=== PATIENT | male | born 1965 | race Caucasian/White ===

== ENCOUNTER 2017-05-02 03:34 | Emergency (ER) | payer BC, OTHER ==
[~2017-05-02] VITALS: Ht 172.7 cm; Wt 87.0 kg
[2017-05-02 03:38] VITALS: TEMP 36.4; Ht 172.7 cm; Wt 87.0 kg
--- NOTE | 2017-05-02 03:53 | EMERGENCY ROOM VISIT NOTE ---
History Report prepared by Sahil: Sunitha Balderas Under the Supervision of: Dr. Jim Johnson D.O. First contact with patient: 03:42 Chief Complaint: BACK PAIN Stated Complaint: PAIN RT SIDE BACK History of Present Illness The patient is a 52 year old male who presents to the Emergency Room with complaints of persistent right back pain starting 30 minutes ago. The pain woke him up from sleep. The pain does not wrap around to his abdomen. He denies injuring his back. He denies any urinary symptoms. He denies any history of kidney problems, back injury, or herniated disc. Source of History: patient Onset: 30 minutes ago Position: back (right) Quality: other (pain) Timing: other (persistent) Associated Symptoms: No abdominal pain, No urinary symptoms Review of Systems See HPI for pertinent positives and negatives. A total of ten systems were reviewed and were otherwise negative. Past Medical & Surgical Medical Problems: (1) Bronchitis (2) Pneumonia Family History FH: heart disease Social History Smoking Status: Current Every Day Smoker Marital Status: Housing Status: lives with family Occupation Status: employed Current/Historical Medications No Active Prescriptions or Reported Meds Allergies Coded Allergies: No Known Allergies (Unverified , 05/02/17) Physical Exam Vital Signs Date Time Temp Pulse Resp B/P (MAP) Pulse Ox O2 Delivery O2 Flow Rate FiO2 05/02/17 05:16 81 16 134/76 98 Room Air 05/02/17 03:38 36.4 92 18 145/92 97 Room Air Physical Exam GENERAL: Awake, alert, well-appearing, in no distress HENT: Normocephalic, atraumatic. Oropharynx unremarkable. EYES: Normal conjunctiva. Sclera non-icteric. NECK: Supple. No nuchal rigidity. FROM. No JVD. RESPIRATORY: Clear to auscultation. CARDIAC: Regular rate, normal rhythm. Extremities warm and well perfused. Pulses equal. ABDOMEN: Soft, non-distended. No tenderness to palpation. No rebound or guarding. No masses. RECTAL: Deferred. MUSCULOSKELETAL: Chest examination reveals no tenderness. The back is symmetrical on inspection without obvious abnormality. Mild right lateral lumbar tenderness. There is no CVA tenderness to palpation. No joint edema. LOWER EXTREMITIES: Calves are equal size bilaterally and non-tender. No edema. No discoloration. NEURO: Normal sensorium. No sensory or motor deficits noted. SKIN: No rash or jaundice noted. Medical Decision & Procedures ER Provider Diagnostic Interpretation: Radiology results as stated below per my review and [facility] radiologist interpretation: CT Abdomen & Pelvis Without Contrast: No hydronephrosis, ureteral calculus, or perinephric inflammatory changes to account for right flank pain. Bladder wall thickening which may be due to cystitis. Correlate with urinalysis. Large amount of gastric contents. Correlate with recent meal. Normal appendix. Few colonic diverticula without evidence of acute diverticulitis. Contracted gallbladder. No radiopaque gallstones. Laboratory Results 05/02/17 03:55 Red Blood Count 4.92, Mean Corpuscular Volume 89.4, Mean Corpuscular Hemoglobin 30.9, Mean Corpuscular Hemoglobin Concent 34.5, Mean Platelet Volume 10.2, Neutrophils (%) (Auto) 63.6, Lymphocytes (%) (Auto) 24.6, Monocytes (%) (Auto) 8.5, Eosinophils (%) (Auto) 2.4, Basophils (%) (Auto) 0.5, Neutrophils # (Auto) 5.37, Lymphocytes # (Auto) 2.07, Monocytes # (Auto) 0.72, Eosinophils # (Auto) 0.20, Basophils # (Auto) 0.04 05/02/17 03:55 Test 05/02/17 03:47 05/02/17 03:55 White Blood Count 8.43 K/uL (4.8-10.8) Red Blood Count 4.92 M/uL (4.7-6.1) Hemoglobin 15.2 g/dL (14.0-18.0) Hematocrit 44.0 % (42-52) Mean Corpuscular Volume 89.4 fL (80-100) Mean Corpuscular Hemoglobin 30.9 pg (25-34) Mean Corpuscular Hemoglobin Concent 34.5 g/dl (32-36) Platelet Count 227 K/uL (130-400) Mean Platelet Volume 10.2 fL (7.4-10.4) Neutrophils (%) (Auto) 63.6 % Lymphocytes (%) (Auto) 24.6 % Monocytes (%) (Auto) 8.5 % Eosinophils (%) (Auto) 2.4 % Basophils (%) (Auto) 0.5 % Neutrophils # (Auto) 5.37 K/uL (1.4-6.5) Lymphocytes # (Auto) 2.07 K/uL (1.2-3.4) Monocytes # (Auto) 0.72 K/uL (0.11-0.59) Eosinophils # (Auto) 0.20 K/uL (0-0.5) Basophils # (Auto) 0.04 K/uL (0-0.2) RDW Standard Deviation 44.7 fL (36.4-46.3) RDW Coefficient of Variation 13.6 % (11.5-14.5) Immature Granulocyte % (Auto) 0.4 % Immature Granulocyte # (Auto) 0.03 K/uL (0.00-0.02) Anion Gap 8.0 mmol/L (3-11) Est Creatinine Clear Calc Drug Dose 71.9 ml/min Estimated GFR () 74.5 Estimated GFR (Non- 64.2 BUN/Creatinine Ratio 17.6 (10-20) Calcium Level 8.2 mg/dl (8.5-10.1) Total Bilirubin 0.3 mg/dl (0.2-1) Direct Bilirubin < 0.1 mg/dl (0-0.2) Aspartate Amino Transf (AST/SGOT) 18 U/L (15-37) Alanine Aminotransferase (ALT/SGPT) 24 U/L (12-78) Alkaline Phosphatase 82 U/L (45-117) Total Protein 7.2 gm/dl (6.4-8.2) Albumin 3.4 gm/dl (3.4-5.0) Lipase 388 U/L (73-393) Laboratory results reviewed by in ED Course 0344: The patient was evaluated in room B9. A complete history and physical exam was performed. 0617: I reevaluated the patient. Discussed results and discharge instructions: He verbalized understanding and agreement. The patient is ready for discharge. Medical Decision Differential diagnoses include but are not limited to; muscle sprain, strain, herniated disc, kidney infection, kidney stone. Patient feels much better after medication, CAT scan was negative lab work was normal. I discussed evaluation with the patient patient's family at bedside Medication Reconcilliation Current Medication List: was personally reviewed by me Blood Pressure Screening Patient's blood pressure: Elevated blood pressure Blood pressure disposition: Elevated BP felt to be situational Impression Primary Impression: Strain of lumbar region Additional Impression: Renal colic Scribe Attestation The scribe's documentation has been prepared under my direction and personally reviewed by me in its entirety. I confirm that the note above accurately reflects all work, treatment, procedures, and medical decision making performed by me. Departure Information Dispostion Home / Self-Care Prescriptions No Active Prescriptions or Reported Meds Referrals Clarissa Adam D.O. (PCP) Patient Instructions Back Pain - [facility], [facility] Additional Instructions Use heating pad, take Motrin 800 mg every 8 hours. Return for increased pain fever or any concerns Problem Qualifiers
[2017-05-02 04:06] LABS: BASO % 0.5 %; BASO ABS # 0.04 K/uL (0-0.2); COMPLETE YES; EOS % 2.4 %; IG% 0.4 %; LYMPH % 24.6 %; LYMPH ABS # 2.07 K/uL (1.2-3.4); MEAN CELL VOLUME 89.4 fL (80-100); MEAN CORPUSCULAR HEMOGLOBIN 30.9 pg (25-34); MEAN CORPUSCULAR HGB CONC 34.5 g/dl (32-36); MEAN PLATELET VOLUME 10.2 fL (7.4-10.4); MONO % 8.5 %; NEUT % 63.6 %; PLATELET COUNT 227 K/uL (130-400); RED BLOOD COUNT 4.92 M/uL (4.7-6.1); WHITE BLOOD COUNT 8.43 K/uL (4.8-10.8)
[2017-05-02 04:39] LABS: ALT/SGPT 24 U/L (12-78); AST/SGOT 18 U/L (15-37); BLOOD UREA NITROGEN 22 mg/dl (7-18); BUN/CREATININE RATIO 17.6 (10-20); CALCIUM 8.2 mg/dl (8.5-10.1); CARBON DIOXIDE 26 mmol/L (21-32); CHLORIDE 104 mmol/L (98-107); CREATININE 1.26 mg/dl (0.60-1.40); GLUCOSE 114 mg/dl (70-99); POTASSIUM 3.8 mmol/L (3.5-5.1); SODIUM 138 mmol/L (136-145)
[2017-05-02 04:42] LABS: ALKALINE PHOSPHATASE 82 U/L (45-117)
[2017-05-02] MEDS ORDERED: IBUPROFEN 800 MG TAB PO STA (06:44)
[2017-05-02 06:54] VITALS: BP 138/79; PULSE 80; O2SAT 97
--- NOTE | 2017-05-02 08:01 | DIAGNOSTIC IMAGING REPORT ---
ABD/PELVIS WITHOUT FOR STONE HISTORY: 52 years-old Male pain acute right flank pain with history of kidney stones COMPARISON: None available TECHNIQUE: Multiple axial CT images of the abdomen and pelvis were obtained without contrast. A dose lowering technique was used consistent with the principals of [place]. FINDINGS: Lung bases are clear. No pneumatosis or pneumoperitoneum. Imaged inferior cardiac chambers are unremarkable. Liver, spleen, pancreas and adrenal glands are within normal limits. Gallbladder is contracted. Kidneys, and ureters are within normal limits without calculi or obstructive uropathy. Mild wall thickening of the bladder is noted with partial distention. Prostate is mildly prominent with central coarse calcifications. Atherosclerosis and mild tortuosity of the aorta. No bulky adenopathy. Mild gastric distention suggests recent meal. No bowel obstruction or focal bowel wall thickening. Mild gaseous distention of the rectum. Mild colonic diverticulosis without diverticulitis. Moderate stool volume of the ascending and transverse colon. Normal appendix. Soft tissues are unremarkable. Bones appear intact. Degenerative changes are seen within the lumbar spine. IMPRESSION: 1. No acute intra-abdominal or intrapelvic abnormality identified, specifically no renal calculi or obstructive uropathy. 2. Normal appendix. 3. Mild colonic diverticulosis without diverticulitis. 4. Mild wall thickening of the urinary bladder may be secondary to partial distention or cystitis. Correlate with urinalysis. The above report was generated using voice recognition software. It may contain grammatical, syntax or spelling errors. Electronically signed by: Frankie Zimmerman M.D. 05/02/2017 7:59 AM Dictated Date/Time: 05/02/2017 7:47 AM
== END 2017-05-02 06:55 | disposition home or self-care (01) ==
LOC: C.EDB 03:34
DX: S39.012A Strain of muscle, fascia and tendon of lower back, initial encounter (principal); X58.XXXA Exposure to other specified factors, initial encounter; N23 Unspecified renal colic; F17.200 Nicotine dependence, unspecified, uncomplicated; Z82.49 Family history of ischemic heart disease and other diseases of the circulatory system